=== PATIENT | female | born 1945 | race Caucasian/White ===

== ENCOUNTER 2017-08-19 19:55 | Emergency (ER) | payer MEDICARE, OTHER ==
[2017-08-19 20:14] VITALS: O2SAT 97
--- NOTE | 2017-08-19 20:18 | ED.PDOC ---
History of Present Illness - General Chief Complaint: Headache Stated Complaint: back of head hurts Time Seen by Provider: 08/19/17 20:00 Source: patient Exam Limitations: no limitations - History of Present Illness Initial Comments: Emi Sinhg 71 y/o female drove to er with sharp pain back of head which gradually got worse non radiating,no blurry vision or double vision,no phonopsia ,no photophobia,no nausea/vomiting. Timing/Duration: 4-6 hours Severity: moderate Improving Factors: nothing Worsening Factors: other - pressure Associated Symptoms: other - see hpi Allergies/Adverse Reactions: Allergies NO KNOWN ALLERGY Allergy (Unverified 10/21/13 09:33) Home Medications: Ambulatory Orders Aspirin [Aspirin EC] 81 mg PO DAILY 10/21/13 Benazepril HCl 40 mg PO BID 10/21/13 Ciprofloxacin [Cipro] 500 mg PO BID 10/21/13 Lovastatin 40 mg PO DAILY 10/21/13 Metoprolol Tartrate 50 mg PO BID 10/21/13 Omeprazole 20 mg PO DAILY 10/21/13 Meclizine HCl 25 mg PO Q6H #28 tab 03/15/15 Tramadol HCl [Ultram] 50 mg PO Q6H #30 tab 03/15/15 Review of Systems - Review of Systems EENTM: States: no symptoms reported Respiratory: States: no symptoms reported Cardiology: States: no symptoms reported Gastrointestinal/Abdominal: States: no symptoms reported Genitourinary: States: no symptoms reported, discharge Neurological: States: headache Past Medical History (General) - Patient Medical History Hx Stroke: Yes - 2001 Hx Congestive Heart Failure: No Hx Hypertension: Yes Hx Diabetes: No Surgical History: appendectomy, cholecystectomy, tonsillectomy, other - c-spine, shoulder right - Vaccination History Hx Influenza Vaccination: Yes Hx Pneumococcal Vaccination: Yes Family Medical History - Family History Mother Hx Family Diabetes: Yes - mom Physical Exam - Physical Exam General Appearance: Alert, Anxious, No apparent distress Eye Exam: bilateral normal Ears, Nose, Throat: hearing grossly normal, normal ENT inspection, normal pharynx Neck: non-tender, full range of motion, supple, normal inspection Respiratory: chest non-tender, lungs clear, normal breath sounds, no respiratory distress Cardiovascular/Chest: normal peripheral pulses, regular rate, rhythm, no gallop , no murmur Peripheral Pulses: radial,right: 2+, radial,left: 2+ Gastrointestinal/Abdominal: normal bowel sounds, non tender, soft, no organomegaly Back Exam: no CVA tenderness, no vertebral tenderness Extremity: no pedal edema, no calf tenderness Neurologic: no motor/sensory deficits, alert, oriented x 3, other - scalp tenderness occipital area Skin Exam: rash - nothing noted on the scalp Progress - Progress Progress: 08/19/17 21:28 Vital Signs - 8 hr 08/19/17 08/19/17 08/19/17 20:11 20:15 20:44 Temperature 98.9 F Pulse Rate [ 80 74 Right] Respiratory 24 20 Rate Blood Pressure 192/102 167/102 [Left Arm] O2 Sat by Pulse 97 Oximetry 08/19/17 21:04 Temperature Pulse Rate [ 72 Right] Respiratory 18 Rate Blood Pressure 172/95 [Left Arm] O2 Sat by Pulse Oximetry - Results/Orders Results/Orders: 08/19/17 20:18 URINALYSIS Stat 08/19/17 20:30 EKG STAT Laboratory Results - last 24 hr 08/19/17 20:30 WBC 7.4 RBC 4.79 Hgb 13.6 Hct 40.8 MCV 85.2 MCH 28.4 MCHC 33.3 RDW 14.9 H Plt Count 165 MPV 8.4 Absolute Neuts (auto) 5.00 Absolute Lymphs (auto) 1.70 Absolute Monos (auto) 0.50 Absolute Eos (auto) 0.20 Absolute Basos (auto) 0.00 Neutrophils % 67.2 Lymphocytes % 23.0 Monocytes % 6.8 Eosinophils % 2.4 Basophils % 0.6 PT 10.5 INR 0.900 PTT (SP) 28.0 Sodium 141 Potassium 3.5 L Chloride 107 Carbon Dioxide 26 Anion Gap 11.5 L BUN 14 Creatinine 0.67 BUN/Creatinine Ratio 20.9 H Random Glucose 102 Serum Osmolality 281.9 Calcium 8.6 Magnesium 1.8 Total Bilirubin 0.5 Direct Bilirubin < 0.1 Indirect Bilirubin 0.4 AST 21 ALT 16 Alkaline Phosphatase 70 Creatine Kinase 94 CK-MB (CK-2) 1.3 CK-MB (CK-2) % Not Reportable Troponin I < 0.02 Serum Total Protein 6.7 Albumin 4.1 Discuss test result blood and head ct-no acute abnormalities at this time - EKG/XRAY/CT EKG: Sinus, nonspecific ST T wave Chg Comments: HR -82 CT Ordered: Yes - normal non contrast head ct for age Departure - Departure Clinical Impression: Occipital headache Time of Disposition: 21:34 Disposition: Discharge to Home or Self Care Condition: Fair Departure Forms: ED Discharge - Pt. Copy, Patient Portal Self Enrollment Instructions: DI for Headache Referrals: Anthony Santiago MD [Primary Care Provider] - 1-2 Weeks Home Medications: Ambulatory Orders Aspirin [Aspirin EC] 81 mg PO DAILY 10/21/13 Benazepril HCl 40 mg PO BID 10/21/13 Ciprofloxacin [Cipro] 500 mg PO BID 10/21/13 Lovastatin 40 mg PO DAILY 10/21/13 Metoprolol Tartrate 50 mg PO BID 10/21/13 Omeprazole 20 mg PO DAILY 10/21/13 Meclizine HCl 25 mg PO Q6H #28 tab 03/15/15 Tramadol HCl [Ultram] 50 mg PO Q6H #30 tab 03/15/15 Additional Instructions: Follow up with primary Md as per appointment;May take Tramadol 2 tablets 3 x a day as needed for pain/headache;Return to ER as needed
[2017-08-19] MEDS ORDERED: PROMETHAZINE HCL INJ 25 MG/ML VIAL IM ONE (20:31)
[2017-08-19] MEDS ORDERED: MORPHINE SULFATE INJ 10 MG/ML VIAL IM ONE (20:31)
[2017-08-19] MEDS ORDERED: cloNIDine HCL 0.1 MG TAB PO ONE (20:31)
--- NOTE | 2017-08-19 21:23 | CT ---
EXAM: NONCONTRAST BRAIN CT EXAMINATION. CLINICAL INDICATION: Headache. COMPARISON: None. TECHNIQUE: Using low dose helical CT technique, thin section axial images were performed through the brain without the administration of intravenous or subarachnoid contrast material. FINDINGS: Brain volume is normal. No diffuse brain swelling or brain herniation. No hydrocephalus. No subdural or epidural hematomas. No large subacute brain infarction. No parenchymal brain hemorrhage or evidence of intracranial mass lesion. The brainstem and cerebellum are normal. Normal for age bilateral [place] calcification. Caudate heads, lentiform nuclei, thalami and internal capsules are normal. Bones of the skull and skull base are normal. The middle ears and mastoid air cells are clear. The partially visualized paranasal sinuses are clear. Globes and orbits are grossly normal. IMPRESSION: 1. Normal for age noncontrast brain CT examination. This exam was performed according to our departmental dose-optimization program, which includes automated exposure control, adjustment of the mA and/or kV according to patient size and/or use of iterative reconstruction technique. Electronically signed by: Jose Kemp MD 08/19/2017 9:22 PM CDT
[2017-08-19 22:01] VITALS: BP 179/90; TEMP 98.2
== END 2017-08-19 22:01 | disposition home or self-care (01) ==
LOC: ER 19:55
DX: R51 Headache (principal); I10 Essential (primary) hypertension; Z86.73 Personal history of transient ischemic attack (TIA), and cerebral infarction without residual deficits; Z79.82 Long term (current) use of aspirin
CPT/HCPCS: 36415; 70450; 80048; 80076; 81001; 82550; 82553; 84484; 85025; 85610; 85730; 93005; J2270; J2550

== ENCOUNTER → 2017-08-24 | Outpatient (CLI) | payer MEDICARE, OTHER ==
--- NOTE | 2017-08-25 04:09 | MRI ---
EXAM DESCRIPTION: Cervical Spine CLINICAL HISTORY: SPONDYLOSIS COMPARISON: 11/25/2014 TECHNIQUE: Multiplanar T1 and T2 MRI images of the cervical spine were acquired without administration of intravenous contrast. FINDINGS: Prior ACDF C5-C7. The cervical vertebral bodies otherwise demonstrate normal height and alignment. Mild/moderate intervertebral disc space height loss C3-C4 and C4-C5. Normal marrow signal. The cervical cord demonstrates no cord signal abnormality. C2-C3: No significant disc bulge. No spinal canal or neural foraminal narrowing. C3-C4: Disc bulge with osteophytic spurring resulting in moderate spinal canal stenosis. Uncovertebral spurring and facet arthropathy contributes to severe right and moderate left foraminal stenoses. C4-C5: Right eccentric disc bulge with osteophytic spurring flattens the ventral cord. Moderate spinal canal stenosis. Uncovertebral spurring and facet arthropathy contributes to moderate bilateral foraminal stenoses. C5-C6: No spinal canal stenosis. Uncovertebral spurring contributes to mild/moderate bilateral foraminal stenoses. C6-C7: No spinal canal stenosis. Mild uncovertebral spurring contributes to mild/moderate left foraminal stenosis. No significant right foraminal stenosis. C7-T1: No significant disc bulge. No spinal canal or neural foraminal narrowing. The soft tissues of the neck are unremarkable. IMPRESSION: Prior C5-C7 ACDF. Moderate multilevel degenerative changes in the remainder of the cervical spine. Moderate spinal canal stenosis at C3-C4 and C4-C5 secondary to posterior disc osteophyte complexes. Severe right and moderate left foraminal stenosis at C3-C4. Moderate bilateral foraminal stenoses at C4-C5. Electronically signed by: Anthony Estrada MD 08/25/2017 4:07 AM CDT
== END ==
LOC: MRI 08:44
PROVIDERS: ATTEND Family Medicine
DX: M47.812 Spondylosis without myelopathy or radiculopathy, cervical region (principal); M48.02 Spinal stenosis, cervical region

== ENCOUNTER → 2017-09-19 | Outpatient (CLI) | payer MEDICARE, OTHER ==
--- NOTE | 2017-09-19 11:34 | MRI ---
EXAM DESCRIPTION: Lumbar Spine w/o Contrast CLINICAL HISTORY: 71 years Female, STENOSIS COMPARISON: None available. TECHNIQUE: Multiplanar multiecho imaging of the lumbar spine was performed without intravenous contrast administration. FINDINGS: The normal lordotic curvature of the lumbar spine is well preserved. The vertebral body heights are well-maintained with no acute compression deformity. Multilevel intervertebral disc space narrowing is noted. The conus medullaris terminates at T12-L1 intervertebral disc space. The visualized spinal cord demonstrates no signal abnormality. L1-L2: Normal L2-L3: Bilateral facet arthropathy with no significant canal stenosis. There is mild bilateral neural foraminal narrowing. L3-L4: Bilateral facet arthropathy with no significant canal stenosis or neural foraminal narrowing. L4-L5: Diffuse disc bulge and bilateral facet arthropathy with no significant canal stenosis. There is moderate bilateral neural foraminal narrowing. L5-S1: No significant canal stenosis or neural foraminal narrowing. The visualized prevertebral and paravertebral soft tissues appear unremarkable. IMPRESSION: Moderate bilateral neural foraminal narrowing is noted at L4-L5 level and mild bilateral neural foraminal narrowing is noted at L2-L3 level secondary to facet arthropathy. Electronically signed by: Rolanda Bearden MD 09/19/2017 11:33 AM CDT
== END ==
LOC: MRI 10:29
PROVIDERS: ATTEND Neurological Surgery
DX: M48.062 Spinal stenosis, lumbar region with neurogenic claudication (principal)

== ENCOUNTER → 2018-05-15 | Outpatient (CLI) | payer MEDICARE, OTHER ==
--- NOTE | 2018-05-15 14:43 | MRI ---
EXAM DESCRIPTION: Thoracic Spine w/o Contrast: Magnetic Resonance Imaging. CLINICAL HISTORY: RADICULOPATHY COMPARISON: MRI scan of the cervical spine on the same visit. Desiccation of the T1-2 disc. Minimal disc space loss with anterior ridging. TECHNIQUE: Multiplanar, multiple standard sequences, non contrast MRI, thoracic spine. FINDINGS: Desiccation of the T1-T2 disc and minimal disc space loss. Posterior broad-based disc bulge but not touching the cord. Bilateral moderate foraminal narrowing. Bilateral facet joint arthrosis narrowing the canal posteriorly. T3-T4: Desiccation of the disc with posterior small midline bulge. Mild right foraminal narrowing and with facet joint hypertrophy. T4-5 disc space and disc are unremarkable, but narrowing of the bilateral foramina due to facet joint arthrosis and hypertrophy. T5-6: Moderate disc space loss. Modic type II endplate reactive changes. Tiny posterior bulge. Anterior Modic type II endplate reactive changes. Minimal bilateral facet arthrosis and minimal bilateral foraminal narrowing. Significant canal narrowing. T6-7: Disc desiccation and moderate disc space loss anterior bulging and ridging. Diffuse erosive changes in the endplates with anterior Modic type II endplate reactive changes. Disc osteophyte complex encroaching on the left foramen which is moderate to severely narrowed. Mild to moderate narrowing of the right foramen. T7-T8: Disc desiccation and minimal disc space loss. Moderate posterior disc bulge but not encroaching on the cord. Right anterior endplate ridging and disc bulge. Bilateral facet arthrosis and hypertrophy with moderate narrowing of the neural foramina. Modic type I endplate reactive changes more to the left of midline than the right. Schmorl's node inferior T7 endplate T8-T9: Anterior Modic type II endplate reactive changes. Desiccation of the disc and minimal disc space loss. Posterior broad-based disc bulge. Mild to moderate bilateral foraminal narrowing with facet arthrosis and hypertrophy. Anterior right side disc bulge and endplate ridging. Minimal disc desiccation with anterior bulging and endplate ridging at the remaining levels. Mild to moderate foraminal narrowing at multiple levels on the right especially T10-11 and T11-12. Similar narrowing slightly more degree on the left at the remaining levels. Anterior Modic type I endplate reactive changes T11-12 with disc bulge and marrow edema. No scoliosis. Conus terminates at L1. Cord with normal signal, no compression. Paravertebral soft tissues are unremarkable. Normal marrow signal in the remaining vertebral bodies and the posterior elements. Vertebral bodies are not compressed at any level. IMPRESSION: 1. Multiple levels of disc degeneration and bulging. No definite disc herniation. 2. Multiple levels of neural foraminal narrowing unilaterally or bilaterally predominantly due to facet joint arthrosis and hypertrophy. Also contribution from disc spur complex at these levels. Severe narrowing of the left foramen at T6-7. Moderate narrowing of the bilateral foramina at T7-8 and T8-9. 3. Spondylosis endplate reactive changes most noticeable at T6-7, T7-8, anterior T10-11. Electronically signed by: Tavo Fitzgerald MD 05/15/2018 2:41 PM [facility]
--- NOTE | 2018-05-15 15:58 | MRI ---
EXAM DESCRIPTION: Cervical Spine: MRI. CLINICAL HISTORY: 72 years Female POSTLAMINECTOMY COMPARISON: MRI scan of the cervical spine without contrast 08/24/2017. MRI scan of the thoracic spine today. TECHNIQUE: Multiplanar, high-field MRI, multiple sequences, non-contrast Cervical spine. FINDINGS: Again noted is anterior fusion construct C3-C4, and C4-C5. No paravertebral soft tissue mass or fluid collection. No fluid collection in the spinal canal. Normal signal in the cord. Mild canal narrowing at C3-C4 with mild foraminal narrowing. Ring interbody fusion device. Minimal interspace osseous fusion. Facet joints unremarkable. Hypertrophic posterior ligaments at C4-5 impressing on the posterior cord minimal posterior bony hypertrophy at the disc space. Bilateral moderate neural foraminal narrowing. Borderline mild canal stenosis. Anterior fusion construct midline C6-C7 interbody with fusion. No canal or neural foraminal stenosis. Facet joints are unremarkable. Minimal narrowing of the canal at C5-6. Mild bilateral neural foraminal narrowing. Facet joints are negative. Normal signal in the C7-T1 disc with no bulging. Disc spaces preserved. Canal and neural foramina are patent. Facet joints are unremarkable Spinal alignment slight kyphosis C4-C7.. No cord compression or cord edema. Atlantoaxial joint minimal hypertrophy. Base of the cerebellar tonsils is above the foramen magnum. Paravertebral soft tissues are unremarkable. Vertebral bodies are not compressed at any level. Normal marrow signal in the remaining vertebral bodies and the posterior elements. IMPRESSION: 1. Anterior fusion construct C3-4 and C4-5. Hypertrophic posterior ligaments at C4-5 impressing on the cord with borderline mild canal stenosis. This has progressed since the prior study. Bilateral moderate neural foraminal narrowing. Minimal osseous fusion at these levels. 2. Stable anterior fusion C6-C7 and mostly osseous fusion in the disc space also involving effusion device. No significant canal or foraminal narrowing and no significant canal or neural foraminal narrowing at other levels. Electronically signed by: Tavo Fitzgerald MD 05/15/2018 3:56 PM [facility]
== END ==
LOC: MRI 07:58
PROVIDERS: ATTEND Anesthesiology Pain Medicine
DX: M96.1 Postlaminectomy syndrome, not elsewhere classified (principal); M51.14 Intervertebral disc disorders with radiculopathy, thoracic region; M47.894 Other spondylosis, thoracic region; M25.78 Osteophyte, vertebrae; Z98.1 Arthrodesis status

== ENCOUNTER → 2018-08-01 | Outpatient (CLI) | payer MEDICARE, OTHER ==
--- NOTE | 2018-08-02 12:34 | MAM ---
EXAM DESCRIPTION: 3D Screening BILATERAL : Digital Mammography. CLINICAL HISTORY: 72 years Female ANNUAL SCREENING . No complaints. No personal history of breast cancer. Sister with breast cancer. Childbirth. Postmenopausal 37 years. No HRT. Prior benign left breast biopsy. Lifetime risk of developing breast cancer (Tyrer-Cuzick model)(%): 4.2 COMPARISON: Bilateral 2-D screening digital mammography 01/17/2016. TECHNIQUE: Bilateral CC and MLO projection full-field images, digital tomosynthesis mammographic technique. Bilateral digital 2-D full-field MLO images. CAD not available for tomosynthesis or 2-D images. FINDINGS: The breast parenchymal density pattern is: Scattered areas of fibroglandular density. No skin thickening or nipple retraction. Fibroglandular tissues predominantly in the middle third bilaterally. Scattered solitary microcalcifications. Right axillary lymph node. Bilateral vascular calcifications. Bilateral groups of calcifications. No new focal, stellate mass or density, focal asymmetry , and no suspicious microcalcifications bilaterally. Stable mammograms compared to prior study. Taking into account, differences in mammographic technique. IMPRESSION: Benign exam. BIRAD CATEGORY: 2 BENIGN FINDINGS. RECOMMENDATIONS: FOLLOW UP: Routine digital bilateral mammographic screening, one year interval from July 2018. Written communication explaining the IMPRESSION and follow-up, will be mailed to the patient and referring health care provider. The FINDINGS and the FOLLOW-UP plan were reviewed in person with the patient after the examination. According to the [employer], yearly mammograms are recommended starting at age 40 and continuing as long as a woman is in good health. Any breast change noted on a breast self-exam should be reported promptly to the patient's healthcare provider. Breast MRI is recommended for women with an approximately 20-25% or greater lifetime risk of breast cancer, including women with a strong family history of breast or ovarian cancer and women who have been treated for Hodgkin's disease. A negative mammographic report should not delay tissue diagnosis in patients with significant clinical history or physical findings. Extremely dense breast tissue limits the sensitivity of digital mammography. Electronically signed by: Tavo Fitzgerald MD 08/02/2018 12:32 PM CDT
== END ==
LOC: MAMMO 09:00
PROVIDERS: ATTEND Family Medicine
DX: Z12.31 Encounter for screening mammogram for malignant neoplasm of breast (principal)

== ENCOUNTER → 2018-12-27 | Outpatient (CLI) | payer MEDICARE, OTHER ==
--- NOTE | 2018-12-30 08:32 | MRI ---
Study: MRI of the Right Shoulder. Indication: STRAIN OF MUSCLE Technique: Multiplanar, multi sequence MRI of the right shoulder was obtained without intravenous contrast. Comparison: None. Findings: Suspect prior right distal clavicular resection. Type I acromion. Full-thickness tearing mid to posterior two thirds of the supraspinatus tendon insertion and critical zone measuring approximately 16 mm AP by 16 mm transverse. High-grade interstitial tearing anterior two thirds infraspinatus tendon insertion and critical zone suspected as well which has filled with granulation tissue. Subscapularis tendinosis with high-grade articular, effectively full-thickness tearing superior two thirds tendon insertion. Mild atrophy and grade 1/2 fatty infiltration rotator cuff musculature, most pronounced at the subscapularis muscle belly. Long head biceps tendinosis with mild longitudinal fissuring and partial medial subluxation onto the lesser tuberosity. No transection. Circumferential labral truncation/degeneration. Mild glenohumeral joint osteoarthritis with small joint effusion. No acute fracture. Thickening and edema inferior glenohumeral ligament which can be seen with adhesive capsulitis. Impression: Full-thickness tearing posterior two thirds supraspinatus tendon with high-grade interstitial tearing anterior two thirds infraspinatus tendon. Mild atrophy and grade 1/2 fatty infiltration rotator cuff musculature. Subscapularis tendinosis with high-grade articular, effectively full-thickness tearing superior two thirds tendon insertion. Circumferential labral truncation/degeneration. Mild glenohumeral joint osteoarthritis with a small joint effusion. Adhesive capsulitis. Suspected prior right distal clavicular resection. Electronically signed by: Saeid Rutledge MD 12/30/2018 8:30 AM CDT
== END ==
LOC: MRI 09:00
PROVIDERS: ATTEND Orthopaedic Surgery
DX: S46.011A Strain of muscle(s) and tendon(s) of the rotator cuff of right shoulder, initial encounter (principal); M62.511 Muscle wasting and atrophy, not elsewhere classified, right shoulder; M65.811 Other synovitis and tenosynovitis, right shoulder; M75.01 Adhesive capsulitis of right shoulder; M19.011 Primary osteoarthritis, right shoulder

== ENCOUNTER → 2019-04-13 | Outpatient (CLI) | payer MEDICARE, OTHER ==
--- NOTE | 2019-04-13 16:33 | RAD ---
EXAM DESCRIPTION: Chest,2 Views CLINICAL HISTORY: COUGH COMPARISON: 05/29/2017. TECHNIQUE: PA/lateral FINDINGS: The lungs are hypoventilated, but are otherwise clear . No focal consolidation, significant pneumothorax or pleural effusion. The heart is normal in size. No acute osseous abnormality. Moderate degenerative changes of the spine. IMPRESSION: 1. No acute cardiopulmonary abnormality. Electronically signed by: Kendrick Fall DO 04/13/2019 4:32 PM [facility]
== END ==
LOC: LAB.O 15:08
PROVIDERS: ATTEND Nurse Practitioner Family
DX: R05 Cough (principal)

== ENCOUNTER → 2019-08-19 | Outpatient (CLI) | payer MEDICARE, OTHER ==
--- NOTE | 2019-08-21 16:31 | MAM ---
EXAM DESCRIPTION: 3D Screening BILATERAL : Digital Mammography. CLINICAL HISTORY: 73 years Female ANNUAL SCREENING . No complaints. No personal or family history of breast cancer. Menarche age 13. Childbirth age 19. Menopause age unknown. No HRT. Bilateral benign breast biopsies. Lifetime risk of developing breast cancer (Tyrer-Cuzick model)(%): 4.2. COMPARISON: Bilateral screening digital breast tomosynthesis July 2018. TECHNIQUE: Bilateral CC and MLO projection full-field images, digital tomosynthesis mammographic technique. Bilateral digital 2-D full-field MLO images. CAD available for 2-D images. FINDINGS: The breast parenchymal density pattern is: Scattered areas of fibroglandular density. No skin thickening or nipple retraction. Bilateral solitary microcalcifications. Bilateral intramammary lymph nodes. Axillary nodes. Vascular calcifications. Bilateral groups of benign type microcalcifications.. No new focal, stellate mass or density, focal asymmetry , and no suspicious microcalcifications bilaterally. Stable mammograms compared to prior study. IMPRESSION: Benign exam. BIRAD CATEGORY: 2 BENIGN FINDINGS. RECOMMENDATIONS: FOLLOW UP: Routine digital bilateral mammographic screening, one year interval from August 2019. Written communication explaining the IMPRESSION and follow-up, will be mailed to the patient and referring health care provider. According to the [employer], yearly mammograms are recommended starting at age 40 and continuing as long as a woman is in good health. Any breast change noted on a breast self-exam should be reported promptly to the patient's healthcare provider. Breast MRI is recommended for women with an approximately 20-25% or greater lifetime risk of breast cancer, including women with a strong family history of breast or ovarian cancer and women who have been treated for Hodgkin's disease. A negative mammographic report should not delay tissue diagnosis in patients with significant clinical history or physical findings. Extremely dense breast tissue limits the sensitivity of digital mammography. Electronically signed by: Tavo Fitzgerald MD 08/21/2019 4:29 PM CDT
== END ==
LOC: MAMMO 10:00
PROVIDERS: ATTEND Family Medicine
DX: Z12.31 Encounter for screening mammogram for malignant neoplasm of breast (principal)

== ENCOUNTER → 2019-12-09 | Outpatient (CLI) | payer MEDICARE, OTHER ==
--- NOTE | 2019-12-10 11:56 | MRI ---
PROVIDED CLINICAL HISTORY/REASON FOR EXAM: OTHER INTERVERTEBRAL DISC DISPLACEMENT LUMBROSACRAL REGION TECHNIQUE: Multiplanar, multisequence MRI examination performed of the lumbar spine without intravenous contrast material. COMPARISON: September 19, 2017 FINDINGS: Five lumbar type vertebra are assumed. The designated L5/S1 disc space is at axial T2 image 30. Alignment: Minimal degenerative grade 1 anterolisthesis L4 on L5. No acute subluxation. Fracture: None present. Paraspinal Soft Tissues: Unremarkable. Retroperitoneum: Visible structures are unremarkable. Conus Medullaris: Termination at L1 level. Morphology is normal. L1/2: Mild disc desiccation with loss of posterior disc space height. Small symmetric disc bulge. Bilateral facet hypertrophy with thickening of the ligamentum flavum. No significant stenosis. L2/3: Mild disc desiccation with loss of posterior disc space height. Small symmetric disc bulge. Bilateral facet hypertrophy with thickening of the ligamentum flavum. Mild central canal stenosis. Mild bilateral neural foraminal narrowing. L3/4: Small symmetric disc bulge. Mild bilateral neural foraminal narrowing. Mild bilateral lateral recess stenosis. No significant central canal stenosis. Bilateral facet hypertrophy with thickening of the ligamentum flavum. L4/5: Disc desiccation with loss of disc space height. Diffuse symmetric disc bulge osteophyte complex. Moderate bilateral neural foraminal narrowing. Moderate central canal stenosis. Bilateral facet hypertrophy with thickening of the ligamentum flavum. L5/S1: Small symmetric disc bulge. Bilateral facet hypertrophy. No neural foraminal narrowing. Bilateral facet hypertrophy with thickening of the ligamentum flavum. No significant central canal stenosis. IMPRESSION: Multilevel lumbar spondylosis most pronounced at L4/L5. Electronically signed by: Jamal Calloway MD 12/10/2019 11:54 AM CDT
== END ==
LOC: MRI 14:00
PROVIDERS: ATTEND Family Medicine
DX: M51.27 Other intervertebral disc displacement, lumbosacral region (principal); M47.896 Other spondylosis, lumbar region

== ENCOUNTER 2019-12-29 05:25 | Day surgery (SDC) | payer MEDICARE, OTHER ==
[2019-12-29] MEDS ORDERED: DEXAMETHASONE INJ 10 MG/ML VIAL ONE (08:50)
[2019-12-29] MEDS ORDERED: BETAMETHASONE ACETATE/BETAMETH 6 MG/ML VIAL IM ONE (08:50)
[2019-12-29] MEDS ORDERED: BUPIVACAINE 0.5% 30 ML VIAL INJ ONE (08:50)
[2019-12-29] MEDS ORDERED: LIDOCAINE 1% 50 ML VIAL INJ ONE (08:50)
== END 2019-12-29 11:20 | disposition home or self-care (01) ==
LOC: AMB 05:25
PROVIDERS: ATTEND Family Medicine Sports Medicine
DX: G89.4 Chronic pain syndrome (principal); M54.5 Low back pain; M54.16 Radiculopathy, lumbar region; I10 Essential (primary) hypertension; J45.909 Unspecified asthma, uncomplicated; M79.7 Fibromyalgia; Z79.82 Long term (current) use of aspirin; Z79.899 Other long term (current) drug therapy
CPT/HCPCS: 64483; 76000; J1100